=== PATIENT | female | born 1950 | race Caucasian/White ===

== ENCOUNTER 2017-01-04 02:20 | Emergency (ER) | payer OTHER ==
--- NOTE | 2017-01-04 03:29 | ED NURSING NOTES ---
Clinical Report - Nurses [facility] [address] [place] [address] 01/04/2017 2:21 Patient: WANG DUNLAP TRIAGE Triage time 02:23. Acuity: LEVEL 4. Chief Complaint: ANXIETY. 02:34. Alert. SEPSIS SCREEN: Sepsis Screen. Negative (no infection suspected/documented). --02:35 Padilla Contreras R.N. 02:23 01/04/17. BP: 154/92. HR: 98. RR: 17. O2 saturation: 94% on room air. Temp: 98.8 F. Pain level now: 0/10. --02:35 Padilla Contreras R.N. Weight: 79.8 kg stated. Height/Length: 60 inches Per Patient. BMI: 34.4. --02:30 Padilla Contreras R.N. Medications BusPIRone HCl Oral (pt can't remember dose ). --02:27 Padilla Contreras R.N. Dovonex External daily . Hydrochlorothiazide Oral 25 mg, daily. Spiriva HandiHaler Inhalation, 5pm daily . --02:31 Padilla Contreras R.N. Sertraline HCl Oral 25 mg, daily. --02:32 Padilla Contreras R.N. Albuterol Sulfate Inhalation 2 puffs, PRN. --02:36 Padilla Contreras R.N. Allergies No Known Drug Allergy. --02:33 Padilla Contreras R.N. Medication/allergy information source: the patient. --02:35 Padilla Contreras R.N. History Arrived by EMS. Historian: EMS and patient. Unaccompanied. Onset. (2 weeks ago). ( Patient confirmed EMS report, states she has felt panicky everyday and hasn't been able to sleep). Treatment TRANSCRIBING MACHINE MECHANIC: None. EMS treatment TRANSCRIBING MACHINE MECHANIC verbally communicated. ( EMS reports pt complained of Anxiety for the last 2 weeks was seen by a provider started on Buspar took it for 3 days, the anxiety got worse so she quit taking it). PAST MEDICAL HX: Immunizations: up-to-date. The patient has had a hysterectomy. SOCIAL HX: Current some days light tobacco smoker- less than 1/2 a pack per day. Occasional alcohol use. No drug use. No infectious disease exposure. ABUSE ASSESSMENT: No report of abuse. FALL RISK ASSESSMENT: Fall risk assessment completed. No fall risk identified. NUTRITIONAL RISK ASSESSMENT: The nutritional risk assessment revealed no deficiencies. FUNCTIONAL ASSESSMENT: Functional assessment: no impairments noted. LEARNING NEEDS ASSESSMENT: The learning needs assessment revealed no barriers. SKIN INTEGRITY ASSESSMENT: Skin integrity risk assessment completed. No skin integrity risk identified. --02:35 Padilla Contreras R.N. PAST MEDICAL HX: ( patient reports being on 02 at night). --02:37 Padilla Contreras R.N. PROBLEMS: Hypertension. Depression. Anxiety Reaction. Dental Pain. --02:34 Padilla Contreras R.N. COPD - Chronic Obstructive Pulmonary Disease. --02:37 Padilla Contreras R.N. ADDITIONAL SURGERIES: Hysterectomy. --02:34 Padilla Contreras R.N. Interventions ID band on patient. To treatment room. --02:35 Padilla Contreras R.N. PHYSICAL ASSESSMENT 02:23. Ambulatory to room. Patient gowned. GENERAL / NEURO / PSYCH: Alert. Oriented X 4. Speech within normal limits. Affect appears normal. Patient appears calm and cooperative. Good eye contact. Patient appears well-nourished and neat and clean. RESPIRATORY: Respirations not labored. SKIN: Skin intact. Skin is warm and dry. Skin color is within normal limits. --02:36 Padilla Contreras R.N. NURSING PROGRESS NOTES 02:22 Patient to restroom to provide urine sample. --02:22 Padilla Contreras R.N. Patient ID band checked for patient name and birthdate: patient confirmed. Clean catch urine collected with return of yellow-colored clear urine; sample sent to lab for urinalysis. Specimen labeled in the presence of the patient. --02:36 Padilla Contreras R.N. 02:36. Head of bed elevated. Two patient identifiers checked. Call light placed in reach. Side rails up x 1. Bed placed in lowest position. Brakes of bed on. Patient ready for evaluation- chart flagged. --02:36 Padilla Contreras R.N. 03:18 01/04/2017 Ativan (LORazepam) PO 1 mg given. Allergies verified, confirmed 5 rights and sedative warning given to the patient. --03:18 Rico Marte R.N. 03:42. The patient is calm and resting quietly. GENERAL / NEURO / PSYCH: Alert. Oriented X 4. Patient appears calm and cooperative. Affect appears normal. RESPIRATORY: No respiratory distress. SKIN: Skin is warm and dry. Skin color within normal limits. --03:44 Padilla Contreras R.N. 03:50 01/04/2017 Ativan (LORazepam) PO 1 mg given. Allergies verified, confirmed 5 rights and sedative warning given to the patient. --03:53 Padilla Contreras R.N. DISPOSITION / DISCHARGE Condition at departure: stable. No learning barriers present. Discharge instructions provided and reviewed with the patient. Reviewed medication(s) side effects, precautions, dosing and course information. Prescription(s) given to the patient. Patient verbalized understanding. Written instructions provided in Luxembourgish. ( pt in room waiting on ride). The patient was discharged home and accompanied by sandblaster glass. She left the Emergency Department ambulatory and via private vehicle. Fast Food Crew Member driving. FALL RISK ASSESSMENT: Fall risk assessment completed. No fall risk identified. --03:44 Padilla Contreras R.N. 03:36 01/04/17. BP: 142/91. HR: 88. RR: 17. O2 saturation: 94% on room air. Pain level now: 0/10. --03:44 Padilla Contreras R.N. Departure time: 03:53. --03:53 Padilla Contreras R.N. Locked/Released at 01/04/2017 3:54 by Padilla Contreras R.N.
--- NOTE | 2017-01-04 03:29 | ED CLINICAL REPORT ---
Clinical Report - Physicians/Mid Levels [facility] [address] [place] [address] 01/04/2017 2:21 Patient: WANG DUNLAP Time Seen: 02:27. Arrived- By ambulance. Historian- patient and EMS personnel. HISTORY OF PRESENT ILLNESS Chief Complaint: ANXIOUS. This started about 2 weeks ago. (EMS reports pt complained of Anxiety for the last 2 weeks was seen by a provider started on Buspar took it for 3 days, the anxiety got worse so she quit taking it). No recent drug use or alcohol consumption. Has not been sleeping. She has had anxiety. No suicidal thoughts, self-injury inflicted or hallucinations. The symptoms are described as moderate. No injury is present. Similar symptoms previously: Recent medical care: The patient was seen recently by a health care provider. Seen for similar symptoms. REVIEW OF SYSTEMS No headache, dizziness, weakness, chest pain or palpitations. No abdominal pain, vomiting, diarrhea, black stools or numbness. No fever, sore throat or urinary frequency. She has had a cough. No blood tinged sputum, frankly bloody sputum or change in baseline cough. It has been similar to previous symptoms. She has had skin rash located on the back, right forearm and left forearm (chronic psoriasis). Has had similar previous symptoms of skin rash. All systems otherwise negative, except as recorded above. PAST HISTORY ( PCP: [facility] PAST MEDICAL HX: Asthma. COPD (on home O2 "at night"). Hypertension. Anxiety. Psoriasis. Dental problems SURGERY Hysterectomy. Bunionectomy). Medications: Albuterol Sulfate Inhalation 2 puffs, PRN. Sertraline HCl Oral 25 mg, daily. Dovonex External daily . Hydrochlorothiazide Oral 25 mg, daily. Spiriva HandiHaler Inhalation, 5pm daily . BusPIRone HCl Oral (pt can't remember dose ). Allergies: No Known Drug Allergy. SOCIAL HISTORY Smoker- current status unknown. Occasional alcohol use. No drug use. Residence: [place] Is a local resident. Patient is employed. (works at the [employer]). ADDITIONAL NOTES The nursing notes have been reviewed. PHYSICAL EXAM Vital Signs: 01/04/2017 02:23 BP: 154/92. HR: 98. RR: 17. O2 saturation: 94%. Temp: 98.8 F. Pain level now: 0/10. Appearance: Alert. Patient is in moderate distress. Patient is cooperative. Anxious. Eyes: Pupils equal, round and reactive to light. No scleral icterus. Neck: Normal inspection. Neck supple. CVS: Normal heart rate and rhythm. Heart sounds normal. Respiratory: Expiratory mild bilateral wheezes present. Chest nontender. No rales, rhonchi or crepitus. Abdomen: Soft and nontender. Back: No tenderness. Skin: Skin dry. Normal skin color. Normal skin turgor. (psoriaform rash on extremities and trunk). Extremities: Extremities exhibit normal ROM. No calf tenderness. No lower extremity edema. Psych / Neuro: Oriented X 3. Cognition normal. Thought process and content normal. Insight and judgement normal. Cranial nerves normal (as tested). No cerebellar findings. No motor deficit. No sensory deficit. LABS, X-RAYS, AND EKG EKG: EKG time: (done by EMS at 01:36). Regular narrow-complex tachycardia (ventricular rate 105). Sinus tachycardia. Left atrial enlargement. Normal KIN. Non-specific ST segment / T wave abnormalities. The study has been interpreted contemporaneously by me. The EKG appears to be a good tracing. Pulse Oximetry: 01/04/2017 02:23 O2 saturation: 94%. PROGRESS AND PROCEDURES Course of Care: Ativan 1 mg PO given. Patient is stable. Physical exam findings are improved. Symptoms much better. 01/04/2017 03:36 BP: 142/91. HR: 88. RR: 17. O2 saturation: 94%. Pain level now: 0/10. Patient/family counseled. Old ED records reviewed. Disposition: Discharged. Condition: stable and improved. CLINICAL IMPRESSION Stable COPD. Anxiety reaction. Essential hypertension. INSTRUCTIONS Stay with responsible adult family member (or other responsible adult). Drink plenty of fluids. Do not smoke. Seek medical help to quit smoking. Warnings: Further evaluation is necessary. It is very important to follow up with a physician. SEDATIVE MEDICATION: You were given sedative medication during your visit. Do not drive or operate dangerous machinery. CONTROLLED SUBSTANCE WARNINGS. GENERAL WARNINGS: Return or contact your physician immediately if your condition worsens or changes unexpectedly, if not improving as expected, or if other problems arise. Prescription Medications: Ativan 1 mg: Take 1 orally every 8 hours as needed for anxiety. Dispense fifteen (15). No refills. Substitution is permissible. Lunesta 2 mg: take 1 orally at bedtime as needed for sleep. Dispense ten (10). No refills. Substitution is permissible. Follow-up: Follow up with your doctor tomorrow. (Electronically signed by Lamberto Fermin DO 01/04/2017 4:28)
--- NOTE | 2017-01-04 03:29 | ED NURSING NOTES ---
Clinical Report - Nurses [facility] [address] [place] [address] 01/04/2017 2:21 Patient: WANG DUNLAP TRIAGE Triage time 02:23. Acuity: LEVEL 4. Chief Complaint: ANXIETY. 02:34. Alert. SEPSIS SCREEN: Sepsis Screen. Negative (no infection suspected/documented). --02:35 Padilla Contreras R.N. 02:23 01/04/17. BP: 154/92. HR: 98. RR: 17. O2 saturation: 94% on room air. Temp: 98.8 F. Pain level now: 0/10. --02:35 Padilla Contreras R.N. Weight: 79.8 kg stated. Height/Length: 60 inches Per Patient. BMI: 34.4. --02:30 Padilla Contreras R.N. Medications BusPIRone HCl Oral (pt can't remember dose ). --02:27 Padilla Contreras R.N. Dovonex External daily . Hydrochlorothiazide Oral 25 mg, daily. Spiriva HandiHaler Inhalation, 5pm daily . --02:31 Padilla Contreras R.N. Sertraline HCl Oral 25 mg, daily. --02:32 Padilla Contreras R.N. Albuterol Sulfate Inhalation 2 puffs, PRN. --02:36 Padilla Contreras R.N. Allergies No Known Drug Allergy. --02:33 Padilla Contreras R.N. Medication/allergy information source: the patient. --02:35 Padilla Contreras R.N. History Arrived by EMS. Historian: EMS and patient. Unaccompanied. Onset. (2 weeks ago). ( Patient confirmed EMS report, states she has felt panicky everyday and hasn't been able to sleep). Treatment SEARCH AND RESCUE OFFICER: None. EMS treatment SEARCH AND RESCUE OFFICER verbally communicated. ( EMS reports pt complained of Anxiety for the last 2 weeks was seen by a provider started on Buspar took it for 3 days, the anxiety got worse so she quit taking it). PAST MEDICAL HX: Immunizations: up-to-date. The patient has had a hysterectomy. SOCIAL HX: Current some days light tobacco smoker- less than 1/2 a pack per day. Occasional alcohol use. No drug use. No infectious disease exposure. ABUSE ASSESSMENT: No report of abuse. FALL RISK ASSESSMENT: Fall risk assessment completed. No fall risk identified. NUTRITIONAL RISK ASSESSMENT: The nutritional risk assessment revealed no deficiencies. FUNCTIONAL ASSESSMENT: Functional assessment: no impairments noted. LEARNING NEEDS ASSESSMENT: The learning needs assessment revealed no barriers. SKIN INTEGRITY ASSESSMENT: Skin integrity risk assessment completed. No skin integrity risk identified. --02:35 Padilla Contreras R.N. PAST MEDICAL HX: ( patient reports being on 02 at night). --02:37 Padilla Contreras R.N. PROBLEMS: Hypertension. Depression. Anxiety Reaction. Dental Pain. --02:34 Padilla Contreras R.N. COPD - Chronic Obstructive Pulmonary Disease. --02:37 Padilla Contreras R.N. ADDITIONAL SURGERIES: Hysterectomy. --02:34 Padilla Contreras R.N. Interventions ID band on patient. To treatment room. --02:35 Padilla Contreras R.N. PHYSICAL ASSESSMENT 02:23. Ambulatory to room. Patient gowned. GENERAL / NEURO / PSYCH: Alert. Oriented X 4. Speech within normal limits. Affect appears normal. Patient appears calm and cooperative. Good eye contact. Patient appears well-nourished and neat and clean. RESPIRATORY: Respirations not labored. SKIN: Skin intact. Skin is warm and dry. Skin color is within normal limits. --02:36 Padilla Contreras R.N. NURSING PROGRESS NOTES 02:22 Patient to restroom to provide urine sample. --02:22 Padilla Contreras R.N. Patient ID band checked for patient name and birthdate: patient confirmed. Clean catch urine collected with return of yellow-colored clear urine; sample sent to lab for urinalysis. Specimen labeled in the presence of the patient. --02:36 Padilla Contreras R.N. 02:36. Head of bed elevated. Two patient identifiers checked. Call light placed in reach. Side rails up x 1. Bed placed in lowest position. Brakes of bed on. Patient ready for evaluation- chart flagged. --02:36 Padilla Contreras R.N. 03:18 01/04/2017 Ativan (LORazepam) PO 1 mg given. Allergies verified, confirmed 5 rights and sedative warning given to the patient. --03:18 Rico Marte R.N. 03:42. The patient is calm and resting quietly. GENERAL / NEURO / PSYCH: Alert. Oriented X 4. Patient appears calm and cooperative. Affect appears normal. RESPIRATORY: No respiratory distress. SKIN: Skin is warm and dry. Skin color within normal limits. --03:44 Padilla Contreras R.N. 03:50 01/04/2017 Ativan (LORazepam) PO 1 mg given. Allergies verified, confirmed 5 rights and sedative warning given to the patient. --03:53 Padilla Contreras R.N. DISPOSITION / DISCHARGE Condition at departure: stable. No learning barriers present. Discharge instructions provided and reviewed with the patient. Reviewed medication(s) side effects, precautions, dosing and course information. Prescription(s) given to the patient. Patient verbalized understanding. Written instructions provided in Upper Sorbian. ( pt in room waiting on ride). The patient was discharged home and accompanied by haulage engine operator. She left the Emergency Department ambulatory and via private vehicle. Courier Driver driving. FALL RISK ASSESSMENT: Fall risk assessment completed. No fall risk identified. --03:44 Padilla Contreras R.N. 03:36 01/04/17. BP: 142/91. HR: 88. RR: 17. O2 saturation: 94% on room air. Pain level now: 0/10. --03:44 Padilla Contreras R.N. Departure time: 03:53. --03:53 Padilla Contreras R.N. Locked/Released at 01/04/2017 3:54 by Padilla Contreras R.N.
--- NOTE | 2017-01-04 03:29 | ED CLINICAL REPORT ---
Clinical Report - Physicians/Mid Levels [facility] [address] [place] [address] 01/04/2017 2:21 Patient: WANG DUNLAP Time Seen: 02:27. Arrived- By ambulance. Historian- patient and EMS personnel. HISTORY OF PRESENT ILLNESS Chief Complaint: ANXIOUS. This started about 2 weeks ago. (EMS reports pt complained of Anxiety for the last 2 weeks was seen by a provider started on Buspar took it for 3 days, the anxiety got worse so she quit taking it). No recent drug use or alcohol consumption. Has not been sleeping. She has had anxiety. No suicidal thoughts, self-injury inflicted or hallucinations. The symptoms are described as moderate. No injury is present. Similar symptoms previously: Recent medical care: The patient was seen recently by a health care provider. Seen for similar symptoms. REVIEW OF SYSTEMS No headache, dizziness, weakness, chest pain or palpitations. No abdominal pain, vomiting, diarrhea, black stools or numbness. No fever, sore throat or urinary frequency. She has had a cough. No blood tinged sputum, frankly bloody sputum or change in baseline cough. It has been similar to previous symptoms. She has had skin rash located on the back, right forearm and left forearm (chronic psoriasis). Has had similar previous symptoms of skin rash. All systems otherwise negative, except as recorded above. PAST HISTORY ( PCP: [facility] PAST MEDICAL HX: Asthma. COPD (on home O2 "at night"). Hypertension. Anxiety. Psoriasis. Dental problems SURGERY Hysterectomy. Bunionectomy). Medications: Albuterol Sulfate Inhalation 2 puffs, PRN. Sertraline HCl Oral 25 mg, daily. Dovonex External daily . Hydrochlorothiazide Oral 25 mg, daily. Spiriva HandiHaler Inhalation, 5pm daily . BusPIRone HCl Oral (pt can't remember dose ). Allergies: No Known Drug Allergy. SOCIAL HISTORY Smoker- current status unknown. Occasional alcohol use. No drug use. Residence: [place] Is a local resident. Patient is employed. (works at the [employer]). ADDITIONAL NOTES The nursing notes have been reviewed. PHYSICAL EXAM Vital Signs: 01/04/2017 02:23 BP: 154/92. HR: 98. RR: 17. O2 saturation: 94%. Temp: 98.8 F. Pain level now: 0/10. Appearance: Alert. Patient is in moderate distress. Patient is cooperative. Anxious. Eyes: Pupils equal, round and reactive to light. No scleral icterus. Neck: Normal inspection. Neck supple. CVS: Normal heart rate and rhythm. Heart sounds normal. Respiratory: Expiratory mild bilateral wheezes present. Chest nontender. No rales, rhonchi or crepitus. Abdomen: Soft and nontender. Back: No tenderness. Skin: Skin dry. Normal skin color. Normal skin turgor. (psoriaform rash on extremities and trunk). Extremities: Extremities exhibit normal ROM. No calf tenderness. No lower extremity edema. Psych / Neuro: Oriented X 3. Cognition normal. Thought process and content normal. Insight and judgement normal. Cranial nerves normal (as tested). No cerebellar findings. No motor deficit. No sensory deficit. LABS, X-RAYS, AND EKG EKG: EKG time: (done by EMS at 01:36). Regular narrow-complex tachycardia (ventricular rate 105). Sinus tachycardia. Left atrial enlargement. Normal KIN. Non-specific ST segment / T wave abnormalities. The study has been interpreted contemporaneously by me. The EKG appears to be a good tracing. Pulse Oximetry: 01/04/2017 02:23 O2 saturation: 94%. PROGRESS AND PROCEDURES Course of Care: Ativan 1 mg PO given. Patient is stable. Physical exam findings are improved. Symptoms much better. 01/04/2017 03:36 BP: 142/91. HR: 88. RR: 17. O2 saturation: 94%. Pain level now: 0/10. Patient/family counseled. Old ED records reviewed. Disposition: Discharged. Condition: stable and improved. CLINICAL IMPRESSION Stable COPD. Anxiety reaction. Essential hypertension. INSTRUCTIONS Stay with responsible adult family member (or other responsible adult). Drink plenty of fluids. Do not smoke. Seek medical help to quit smoking. Warnings: Further evaluation is necessary. It is very important to follow up with a physician. SEDATIVE MEDICATION: You were given sedative medication during your visit. Do not drive or operate dangerous machinery. CONTROLLED SUBSTANCE WARNINGS. GENERAL WARNINGS: Return or contact your physician immediately if your condition worsens or changes unexpectedly, if not improving as expected, or if other problems arise. Prescription Medications: Ativan 1 mg: Take 1 orally every 8 hours as needed for anxiety. Dispense fifteen (15). No refills. Substitution is permissible. Lunesta 2 mg: take 1 orally at bedtime as needed for sleep. Dispense ten (10). No refills. Substitution is permissible. Follow-up: Follow up with your doctor tomorrow. (Electronically signed by Lamberto Fermin DO 01/04/2017 4:28)
--- NOTE | 2017-01-04 03:29 | ED ORDER SUMMARY ---
..... Patient: WANG DUNLAP OrderSheet [facility] VisitID: [id number] [address] [place] [address] 66y, F Registration Date/Time: 01/04/2017 ORDER SHEET Weight: 79.8 kg (stated) Allergies: No Known Drug Allergy GENERAL ORDERS: MEDICATION ORDERS: Ativan PO 1 mg (HIGH ALERT MEDICATION, NOW) (02:57 01/04/2017 Richard NICHOLS) (3:18 Sarah Chvaes) Ativan PO 1 mg (NOW) (03:53 01/04/2017 Krystal Chvaes verbal order read back to Richard NICHOLS) (3:53 Krystal Chaves) IV FLUIDS: ORDER SHEET NOTES: [Electronically signed by Padilla Contreras R.N. (03:54 01/04/2017)] [Electronically signed by Lamberto Fermin DO (04:28 01/04/2017)] [Electronically locked/signed by Padilla Contreras R.N. (03:54 01/04/2017)]
--- NOTE | 2017-01-04 03:29 | ED ORDER SUMMARY ---
..... Patient: WANG DUNLAP OrderSheet [facility] VisitID: [id number] [address] [place] [address] 66y, F Registration Date/Time: 01/04/2017 ORDER SHEET Weight: 79.8 kg (stated) Allergies: No Known Drug Allergy GENERAL ORDERS: MEDICATION ORDERS: Ativan PO 1 mg (HIGH ALERT MEDICATION, NOW) (02:57 01/04/2017 Richard NICHOLS) (3:18 Sarah Chaves) Ativan PO 1 mg (NOW) (03:53 01/04/2017 Krystal Chaves verbal order read back to Richard NICHOLS) (3:53 Krystal Chaves) IV FLUIDS: ORDER SHEET NOTES: [Electronically signed by Padilla Contreras R.N. (03:54 01/04/2017)] [Electronically signed by Lamberto Fermin DO (04:28 01/04/2017)] [Electronically locked/signed by Padilla Contreras R.N. (03:54 01/04/2017)]
--- NOTE | 2017-01-04 04:28 | ED DISCHARGE INSTRUCTIONS ---
Patient: WANG DUNLAP General Instructions [facility] VisitID: [id number] [address] [place] [address] 66y, F Registration Date/Time: 01/04/2017 Stable COPD. Anxiety reaction. Essential hypertension. INSTRUCTIONS Stay with responsible adult family member (or other responsible adult). Drink plenty of fluids. Do not smoke. Seek medical help to quit smoking. Warnings: Further evaluation is necessary. It is very important to follow up with a physician. SEDATIVE MEDICATION: You were given sedative medication during your visit. Do not drive or operate dangerous machinery. CONTROLLED SUBSTANCE WARNINGS. GENERAL WARNINGS: Return or contact your physician immediately if your condition worsens or changes unexpectedly, if not improving as expected, or if other problems arise. Prescription Medications: Ativan 1 mg: Take 1 orally every 8 hours as needed for anxiety. Dispense fifteen (15). No refills. Substitution is permissible. Lunesta 2 mg: take 1 orally at bedtime as needed for sleep. Dispense ten (10). No refills. Substitution is permissible. Follow-up: Follow up with your doctor tomorrow. ADDITIONAL INFORMATION Stress Reaction Anxiety is the feeling we all get when we think something bad might happen. It is a normal response to stress and usually causes only a mild reaction. When anxiety becomes more severe, emotions may interfere with daily life. In some cases, you may not even be aware of what it is youre anxious about! During an anxiety reaction, you may feel like you are helpless, nervous, depressed or irritable. Your body may show signs of anxiety in many ways. You may experience dry mouth, shakiness, dizziness, weakness, trouble breathing, chest pressure, headache, nausea, diarrhea, tiredness, inability to sleep or sexual problems. Home Care: 1) Try to locate the sources of stress in your life. They may not be obvious! These may include: -- Daily hassles of life which pile up (traffic jams, missed appointments, car troubles, etc.) -- Major life changes, both good (new baby, job promotion) and bad (loss of job, loss of loved one) -- Overload: feeling that you have too many responsibilities and can't take care of all of them at once -- Feeling helpless, feeling that your problems are beyond what youre able to solve 2) Notice how your body reacts to stress. Learn to listen to your body signals. This will help you take action before the stress becomes severe. 3) When you can, do something about the source of your stress. (Avoid hassles, limit the amount of change that happens in your life at one time and take a break when you feel overloaded). 4) Unfortunately, many stressful situations cannot be avoided. It is necessary to learn HOW TO MANAGE STRESS better. There are many proven methods that will reduce your anxiety. These include simple things like exercise, good nutrition and adequate rest. Also, there are certain techniques that are helpful: relaxation and breathing exercises, visualization, biofeedback and meditation. For more information about this, consult your doctor or go to a local bookstore and review the many books and tapes available on this subject. Follow Up If you feel that your anxiety is not responding to self-help measures, contact your doctor or make an appointment with a counselor. Get Prompt Medical Attention if any of the following occur: -- Your symptoms get worse -- Chest pain or trouble breathing -- Severe headache not relieved by rest and mild pain reliever -- Rapid or irregular heartbeat, fainting Panic Attack A panic attack is an extreme fear reaction that comes on for no apparent reason. Symptoms may include pounding or racing heartbeat, shortness of breath, dizziness, weakness and sweating. There is usually a fear that something terrible will happen or that you may . The attack may last a few minutes up to a few hours. Between attacks things will seem quite normal. This condition has a psychological cause and can be treated with the help of a therapist or psychiatrist. Medication is often used and can be very helpful for this problem. Home Care: Try to identify the sources of stress in your life. It may not be obvious! These may include: Daily hassles of life which pile up (traffic jams, missed appointments, car troubles, etc.). Major life changes, both good (new baby, job promotion) and bad (loss of job, loss of loved one). Overload: feeling that you have too many responsibilities and can't take care of everything at once. Helplessness: feeling like your problems are too much for you to handle. Notice how your body reacts to stress. Learn to listen to your body signals so that you can take action before the stress becomes severe. When possible, AVOID or REDUCE THE CAUSE OF STRESS. Avoid hassles, limit the amount of change that is happening in your life at one time or take a break when you feel overloaded. Unfortunately, many stressful situations cannot be avoided. Therefore, it is necessary to LEARN HOW TO MANAGE STRESS better. There are many proven methods that work and will reduce your anxiety. These include simple things like exercise, good nutrition and adequate rest. Also, there are certain techniques that are helpful: relaxation and breathing exercises, visualization, biofeedback, meditation or simply taking some time-out to clear your mind. For more information about this, consult your doctor or go to a local bookstore and review the many books and tapes available on this subject. Follow Up with your doctor or a therapist as advised. Get Prompt Medical Attention if any of the following occur: Worsening of your symptoms to the point of feeling [id number] A change in the type of pain: if it feels different, becomes more severe, lasts longer, or begins to spread into your shoulder, arm, neck, jaw or back Shortness of breath or increased pain with breathing Increasing feeling of weakness or dizziness Fainting Cough with dark colored sputum (phlegm) or blood Fever of 100.4F (38C) or higher, or as directed by your healthcare provider Swelling, pain or redness in one leg High Blood Pressure -- To Be Confirmed [No Tx] Your blood pressure was higher today than normal. Sometimes anxiety or pain can cause a temporary rise in blood pressure that later returns to normal. If your blood pressure is high on one measurement, this does not mean that you have hypertension (a chronic illness). However, you must have your blood pressure measured again within the next few days to find out if its still high. A normal blood pressure is 120/80 or less. The first (top) number is the "systolic" pressure. The second (bottom) number is the "diastolic" pressure. Hypertension exists when either the top number is 140 or higher, OR the bottom number is 90 or higher on repeated measurements. Blood pressure in the range of 120-140 (systolic) or 80-89 (diastolic) is considered "pre-hypertension". This means your are at risk for getting hypertension. You should have regular blood pressure checks to be sure your blood pressure is not rising. Home Care: Measure your blood pressure on 3 different days and write down the results. This can be done at your doctor's office or this facility. Some pharmacies and grocery stores offer automated blood pressure machines for your use. Follow Up: If your blood pressure is "high" (over 120/80) on 2 out of 3 days, you will need to follow up with your doctor for further evaluation and treatment. DO NOT PUT THIS OFF! Untreated high blood pressure increases the risk for heart attack, also known as acute myocardial infarction, or AMI, and stroke. It is a treatable condition. Get Prompt Medical Attention if any of the following occur: Chest pain or shortness of breath Severe headache Throbbing or rushing sound in the ears Nosebleed Sudden severe abdominal pain Extreme drowsiness, confusion or fainting Dizziness or vertigo (dizziness with spinning sensation) Weakness of an arm or leg or one side of the face Difficulty with speech or vision How To Quit Smoking Smoking is one of the hardest habits to break. About half of all those who have ever smoked have been able to quit, and most of those (about 70%) who still smoke want to quit. Here are some of the best ways to stop smoking. Keep Trying: It takes most smokers about 8 tries before they are finally able to fully quit. So, the more often you try and fail, the better your chance of quitting the next time! So, don't give up! Go Cold [place]: Most ex-smokers quit cold turkey. Trying to cut back gradually doesn't seem to work as well, perhaps because it continues the smoking habit. Also, it is possible to fool yourself by inhaling more while smoking fewer cigarettes. This results in the same amount of nicotine in your body! Get Support: Support programs can make an important difference, especially for the heavy smoker. These groups offer lectures, methods to change your behavior and peer support. Call the free national Quitline for more information. 303-HWPC-TPK (845-008-9725). Low-cost or free programs are offered by many hospitals, local chapters of the [employer] (089-520-6028) and the [employer] (499-354-6275). Support at home is important too. Non-smokers can help by offering praise and encouragement. If the smoker fails to quit, encourage them to try again! Srrr-Hty-Vmoqneo Medicines: For those who can't quit on their own, Nicotine Replacement Therapy (NRT) may make quitting much easier. Certain aids such as the nicotine patch, gum and lozenge are available without a prescription. However, it is best to use these under the guidance of your doctor. The skin patch provides a steady supply of nicotine to the body. Nicotine gum and lozenge gives temporary bursts of low levels of nicotine. Both methods take the edge off the craving for cigarettes. WARNING: If you feel symptoms of nicotine overdose, such as nausea, vomiting, dizziness, weakness, or fast heartbeat, stop using these and see your doctor. Prescription Medicines: After evaluating your smoking patterns and prior attempts at quitting, your doctor may offer a prescription medicine such as bupropion (Zyban, Wellbutrin), varenicline (Chantix, Champix), a niocotine inhaler or nasal spray. Each has its unique advantage and side effects which your doctor can review with you. Health Benefits Of Quitting: The benefits of quitting start right away and keep improving the longer you go without smokin minutes: blood pressure and pulse return to normal 8 hours: oxygen levels return to normal 2 days: ability to smell and taste begins to improve as damaged nerves start to regrow 2-3 weeks: circulation and lung function improves 1-9 months: decreased cough, congestion and shortness of breath; less tired 1 year: risk of heart attack decreases by half 5 years: risk of lung cancer decreases by half; risk of stroke becomes the same as a non-smoker For information about how to quit smoking, visit the following links: [employer] , Clearing the Air, Quit Smoking Today - an online booklet. http://www.smokefree.gov/pubs/clearing_the_air.pdf Smokefree.gov http://smokefree.gov/ QuitNet http://www.quitnet.com/ Lorazepam Oral tablet What is this medicine? LORAZEPAM (angelica A ze licha) is a benzodiazepine. It is used to treat anxiety. How should I use this medicine? Take this medicine by mouth with a glass of water. Follow the directions on the prescription label. If it upsets your stomach, take it with food or milk. Take your medicine at regular intervals. Do not take it more often than directed. Do not stop taking except on the advice of your doctor or health acute care physical therapist. Talk to your manager generation regarding the use of this medicine in children. Special care may be needed. What side effects may I notice from receiving this medicine? Side effects that you should report to your doctor or health acute care physical therapist as soon as possible: changes in vision confusion depression mood changes, excitability or aggressive behavior movement difficulty, staggering or jerky movements muscle cramps restlessness weakness or tiredness Side effects that usually do not require medical attention (report to your doctor or health acute care physical therapist if they continue or are bothersome): constipation or diarrhea difficulty sleeping, nightmares dizziness, drowsiness headache nausea, vomiting What may interact with this medicine? barbiturate medicines for inducing sleep or treating seizures, like phenobarbital clozapine medicines for depression, mental problems or psychiatric disturbances medicines for sleep phenytoin probenecid theophylline valproic acid What if I miss a dose? If you miss a dose, take it as soon as you can. If it is almost time for your next dose, take only that dose. Do not take double or extra doses. Where should I keep my medicine? Keep out of the reach of children. This medicine can be abused. Keep your medicine in a safe place to protect it from theft. Do not share this medicine with anyone. Selling or giving away this medicine is dangerous and against the law. Store at room temperature between 20 and 25 degrees C (68 and 77 degrees F). Protect from light. Keep container tightly closed. Throw away any unused medicine after the expiration date. What should I tell my health care provider before I take this medicine? They need to know if you have any of these conditions: alcohol or drug abuse problem bipolar disorder, depression, psychosis or other mental health condition glaucoma kidney or liver disease lung disease or breathing difficulties myasthenia gravis Parkinson's disease seizures or a history of seizures suicidal thoughts an unusual or allergic reaction to lorazepam, other benzodiazepines, foods, dyes, or preservatives or trying to get breast-feeding What should I watch for while using this medicine? Visit your doctor or health acute care physical therapist for regular checks on your progress. Your body may become dependent on this medicine, ask your doctor or health acute care physical therapist if you still need to take it. However, if you have been taking this medicine regularly for some time, do not suddenly stop taking it. You must gradually reduce the dose or you may get severe side effects. Ask your doctor or health acute care physical therapist for advice before increasing or decreasing the dose. Even after you stop taking this medicine it can still affect your body for several days. You may get drowsy or dizzy. Do not drive, use machinery, or do anything that needs mental alertness until you know how this medicine affects you. To reduce the risk of dizzy and fainting spells, do not stand or sit up quickly, especially if you are an older patient. Alcohol may increase dizziness and drowsiness. Avoid alcoholic drinks. Do not treat yourself for coughs, colds or allergies without asking your doctor or health acute care physical therapist for advice. Some ingredients can increase possible side effects. You have been given the following additional information: Anxiety Reaction Panic Attack Hypertension, To Be Confirmed Smoking Cessation Lorazepam Oral tablet Stay with responsible adult family member (or other responsible adult). (Electronically signed by Lamberto Fermin DO 01/04/2017 4:28)
--- NOTE | 2017-01-04 04:28 | ED MED RECONCILIATION SUMMARY ---
Patient: WANG DUNLAP Medication Reconciliation Report [facility] VisitID: [id number] [address] [place] [address] 66y, F Registration Date/Time: 01/04/2017 Weight: 79.8 kg Height/Length: 60 in. BMI: 34.4 ALLERGIES: No Known Drug Allergy The patient's Home Medications are listed below: CONTINUE TAKING THE FOLLOWING MEDICATIONS: Albuterol Sulfate Inhalation 2 puffs, PRN BusPIRone HCl Oral, pt can't remember dose Dovonex External daily Hydrochlorothiazide Oral 25 mg, daily Sertraline HCl Oral 25 mg, daily Spiriva HandiHaler Inhalation, 5pm daily The source(s) of the original Home Medication information: patient The following Medications were given to the patient in the Emergency Department: Ativan [PO] PO 1 mg, administered: 01/04/2017 3:18:00 AM Ativan [PO] PO 1 mg, administered: 01/04/2017 3:50:00 AM The following Medications were prescribed to the patient: Ativan 1 mg: Take 1 orally every 8 hours as needed for anxiety. Dispense fifteen (15). No refills. Substitution is permissible. -- Lamberto Fermin DO Lunesta 2 mg: take 1 orally at bedtime as needed for sleep. Dispense ten (10). No refills. Substitution is permissible. -- Lamberto Fermin DO
--- NOTE | 2017-01-04 04:28 | ED DISCHARGE INSTRUCTIONS ---
Patient: WANG DUNLAP General Instructions [facility] VisitID: [id number] [address] [place] [address] 66y, F Registration Date/Time: 01/04/2017 Stable COPD. Anxiety reaction. Essential hypertension. INSTRUCTIONS Stay with responsible adult family member (or other responsible adult). Drink plenty of fluids. Do not smoke. Seek medical help to quit smoking. Warnings: Further evaluation is necessary. It is very important to follow up with a physician. SEDATIVE MEDICATION: You were given sedative medication during your visit. Do not drive or operate dangerous machinery. CONTROLLED SUBSTANCE WARNINGS. GENERAL WARNINGS: Return or contact your physician immediately if your condition worsens or changes unexpectedly, if not improving as expected, or if other problems arise. Prescription Medications: Ativan 1 mg: Take 1 orally every 8 hours as needed for anxiety. Dispense fifteen (15). No refills. Substitution is permissible. Lunesta 2 mg: take 1 orally at bedtime as needed for sleep. Dispense ten (10). No refills. Substitution is permissible. Follow-up: Follow up with your doctor tomorrow. ADDITIONAL INFORMATION Stress Reaction Anxiety is the feeling we all get when we think something bad might happen. It is a normal response to stress and usually causes only a mild reaction. When anxiety becomes more severe, emotions may interfere with daily life. In some cases, you may not even be aware of what it is youre anxious about! During an anxiety reaction, you may feel like you are helpless, nervous, depressed or irritable. Your body may show signs of anxiety in many ways. You may experience dry mouth, shakiness, dizziness, weakness, trouble breathing, chest pressure, headache, nausea, diarrhea, tiredness, inability to sleep or sexual problems. Home Care: 1) Try to locate the sources of stress in your life. They may not be obvious! These may include: -- Daily hassles of life which pile up (traffic jams, missed appointments, car troubles, etc.) -- Major life changes, both good (new baby, job promotion) and bad (loss of job, loss of loved one) -- Overload: feeling that you have too many responsibilities and can't take care of all of them at once -- Feeling helpless, feeling that your problems are beyond what youre able to solve 2) Notice how your body reacts to stress. Learn to listen to your body signals. This will help you take action before the stress becomes severe. 3) When you can, do something about the source of your stress. (Avoid hassles, limit the amount of change that happens in your life at one time and take a break when you feel overloaded). 4) Unfortunately, many stressful situations cannot be avoided. It is necessary to learn HOW TO MANAGE STRESS better. There are many proven methods that will reduce your anxiety. These include simple things like exercise, good nutrition and adequate rest. Also, there are certain techniques that are helpful: relaxation and breathing exercises, visualization, biofeedback and meditation. For more information about this, consult your doctor or go to a local bookstore and review the many books and tapes available on this subject. Follow Up If you feel that your anxiety is not responding to self-help measures, contact your doctor or make an appointment with a counselor. Get Prompt Medical Attention if any of the following occur: -- Your symptoms get worse -- Chest pain or trouble breathing -- Severe headache not relieved by rest and mild pain reliever -- Rapid or irregular heartbeat, fainting Panic Attack A panic attack is an extreme fear reaction that comes on for no apparent reason. Symptoms may include pounding or racing heartbeat, shortness of breath, dizziness, weakness and sweating. There is usually a fear that something terrible will happen or that you may . The attack may last a few minutes up to a few hours. Between attacks things will seem quite normal. This condition has a psychological cause and can be treated with the help of a therapist or psychiatrist. Medication is often used and can be very helpful for this problem. Home Care: Try to identify the sources of stress in your life. It may not be obvious! These may include: Daily hassles of life which pile up (traffic jams, missed appointments, car troubles, etc.). Major life changes, both good (new baby, job promotion) and bad (loss of job, loss of loved one). Overload: feeling that you have too many responsibilities and can't take care of everything at once. Helplessness: feeling like your problems are too much for you to handle. Notice how your body reacts to stress. Learn to listen to your body signals so that you can take action before the stress becomes severe. When possible, AVOID or REDUCE THE CAUSE OF STRESS. Avoid hassles, limit the amount of change that is happening in your life at one time or take a break when you feel overloaded. Unfortunately, many stressful situations cannot be avoided. Therefore, it is necessary to LEARN HOW TO MANAGE STRESS better. There are many proven methods that work and will reduce your anxiety. These include simple things like exercise, good nutrition and adequate rest. Also, there are certain techniques that are helpful: relaxation and breathing exercises, visualization, biofeedback, meditation or simply taking some time-out to clear your mind. For more information about this, consult your doctor or go to a local bookstore and review the many books and tapes available on this subject. Follow Up with your doctor or a therapist as advised. Get Prompt Medical Attention if any of the following occur: Worsening of your symptoms to the point of feeling [id number] A change in the type of pain: if it feels different, becomes more severe, lasts longer, or begins to spread into your shoulder, arm, neck, jaw or back Shortness of breath or increased pain with breathing Increasing feeling of weakness or dizziness Fainting Cough with dark colored sputum (phlegm) or blood Fever of 100.4F (38C) or higher, or as directed by your healthcare provider Swelling, pain or redness in one leg High Blood Pressure -- To Be Confirmed [No Tx] Your blood pressure was higher today than normal. Sometimes anxiety or pain can cause a temporary rise in blood pressure that later returns to normal. If your blood pressure is high on one measurement, this does not mean that you have hypertension (a chronic illness). However, you must have your blood pressure measured again within the next few days to find out if its still high. A normal blood pressure is 120/80 or less. The first (top) number is the "systolic" pressure. The second (bottom) number is the "diastolic" pressure. Hypertension exists when either the top number is 140 or higher, OR the bottom number is 90 or higher on repeated measurements. Blood pressure in the range of 120-140 (systolic) or 80-89 (diastolic) is considered "pre-hypertension". This means your are at risk for getting hypertension. You should have regular blood pressure checks to be sure your blood pressure is not rising. Home Care: Measure your blood pressure on 3 different days and write down the results. This can be done at your doctor's office or this facility. Some pharmacies and grocery stores offer automated blood pressure machines for your use. Follow Up: If your blood pressure is "high" (over 120/80) on 2 out of 3 days, you will need to follow up with your doctor for further evaluation and treatment. DO NOT PUT THIS OFF! Untreated high blood pressure increases the risk for heart attack, also known as acute myocardial infarction, or AMI, and stroke. It is a treatable condition. Get Prompt Medical Attention if any of the following occur: Chest pain or shortness of breath Severe headache Throbbing or rushing sound in the ears Nosebleed Sudden severe abdominal pain Extreme drowsiness, confusion or fainting Dizziness or vertigo (dizziness with spinning sensation) Weakness of an arm or leg or one side of the face Difficulty with speech or vision How To Quit Smoking Smoking is one of the hardest habits to break. About half of all those who have ever smoked have been able to quit, and most of those (about 70%) who still smoke want to quit. Here are some of the best ways to stop smoking. Keep Trying: It takes most smokers about 8 tries before they are finally able to fully quit. So, the more often you try and fail, the better your chance of quitting the next time! So, don't give up! Go Cold [place]: Most ex-smokers quit cold turkey. Trying to cut back gradually doesn't seem to work as well, perhaps because it continues the smoking habit. Also, it is possible to fool yourself by inhaling more while smoking fewer cigarettes. This results in the same amount of nicotine in your body! Get Support: Support programs can make an important difference, especially for the heavy smoker. These groups offer lectures, methods to change your behavior and peer support. Call the free national Quitline for more information. 539-TJYP-RAN (968-563-0910). Low-cost or free programs are offered by many hospitals, local chapters of the [employer] (736-637-9539) and the [employer] (019-877-2061). Support at home is important too. Non-smokers can help by offering praise and encouragement. If the smoker fails to quit, encourage them to try again! Dzor-Gro-[id number] Medicines: For those who can't quit on their own, Nicotine Replacement Therapy (NRT) may make quitting much easier. Certain aids such as the nicotine patch, gum and lozenge are available without a prescription. However, it is best to use these under the guidance of your doctor. The skin patch provides a steady supply of nicotine to the body. Nicotine gum and lozenge gives temporary bursts of low levels of nicotine. Both methods take the edge off the craving for cigarettes. WARNING: If you feel symptoms of nicotine overdose, such as nausea, vomiting, dizziness, weakness, or fast heartbeat, stop using these and see your doctor. Prescription Medicines: After evaluating your smoking patterns and prior attempts at quitting, your doctor may offer a prescription medicine such as bupropion (Zyban, Wellbutrin), varenicline (Chantix, Champix), a niocotine inhaler or nasal spray. Each has its unique advantage and side effects which your doctor can review with you. Health Benefits Of Quitting: The benefits of quitting start right away and keep improving the longer you go without smokin minutes: blood pressure and pulse return to normal 8 hours: oxygen levels return to normal 2 days: ability to smell and taste begins to improve as damaged nerves start to regrow 2-3 weeks: circulation and lung function improves 1-9 months: decreased cough, congestion and shortness of breath; less tired 1 year: risk of heart attack decreases by half 5 years: risk of lung cancer decreases by half; risk of stroke becomes the same as a non-smoker For information about how to quit smoking, visit the following links: National Cancer [place] , Clearing the Air, Quit Smoking Today - an online booklet. http://www.smokefree.gov/pubs/clearing_the_air.pdf Smokefree.gov http://smokefree.gov/ QuitNet http://www.quitnet.com/ Lorazepam Oral tablet What is this medicine? LORAZEPAM (angelica A ze licha) is a benzodiazepine. It is used to treat anxiety. How should I use this medicine? Take this medicine by mouth with a glass of water. Follow the directions on the prescription label. If it upsets your stomach, take it with food or milk. Take your medicine at regular intervals. Do not take it more often than directed. Do not stop taking except on the advice of your doctor or health rn care manager. Talk to your bark fitter regarding the use of this medicine in children. Special care may be needed. What side effects may I notice from receiving this medicine? Side effects that you should report to your doctor or health rn care manager as soon as possible: changes in vision confusion depression mood changes, excitability or aggressive behavior movement difficulty, staggering or jerky movements muscle cramps restlessness weakness or tiredness Side effects that usually do not require medical attention (report to your doctor or health rn care manager if they continue or are bothersome): constipation or diarrhea difficulty sleeping, nightmares dizziness, drowsiness headache nausea, vomiting What may interact with this medicine? barbiturate medicines for inducing sleep or treating seizures, like phenobarbital clozapine medicines for depression, mental problems or psychiatric disturbances medicines for sleep phenytoin probenecid theophylline valproic acid What if I miss a dose? If you miss a dose, take it as soon as you can. If it is almost time for your next dose, take only that dose. Do not take double or extra doses. Where should I keep my medicine? Keep out of the reach of children. This medicine can be abused. Keep your medicine in a safe place to protect it from theft. Do not share this medicine with anyone. Selling or giving away this medicine is dangerous and against the law. Store at room temperature between 20 and 25 degrees C (68 and 77 degrees F). Protect from light. Keep container tightly closed. Throw away any unused medicine after the expiration date. What should I tell my health care provider before I take this medicine? They need to know if you have any of these conditions: alcohol or drug abuse problem bipolar disorder, depression, psychosis or other mental health condition glaucoma kidney or liver disease lung disease or breathing difficulties myasthenia gravis Parkinson's disease seizures or a history of seizures suicidal thoughts an unusual or allergic reaction to lorazepam, other benzodiazepines, foods, dyes, or preservatives or trying to get breast-feeding What should I watch for while using this medicine? Visit your doctor or health rn care manager for regular checks on your progress. Your body may become dependent on this medicine, ask your doctor or health rn care manager if you still need to take it. However, if you have been taking this medicine regularly for some time, do not suddenly stop taking it. You must gradually reduce the dose or you may get severe side effects. Ask your doctor or health rn care manager for advice before increasing or decreasing the dose. Even after you stop taking this medicine it can still affect your body for several days. You may get drowsy or dizzy. Do not drive, use machinery, or do anything that needs mental alertness until you know how this medicine affects you. To reduce the risk of dizzy and fainting spells, do not stand or sit up quickly, especially if you are an older patient. Alcohol may increase dizziness and drowsiness. Avoid alcoholic drinks. Do not treat yourself for coughs, colds or allergies without asking your doctor or health rn care manager for advice. Some ingredients can increase possible side effects. You have been given the following additional information: Anxiety Reaction Panic Attack Hypertension, To Be Confirmed Smoking Cessation Lorazepam Oral tablet Stay with responsible adult family member (or other responsible adult). (Electronically signed by Lamberto Fermin DO 01/04/2017 4:28)
--- NOTE | 2017-01-04 04:28 | ED MED RECONCILIATION SUMMARY ---
Patient: WANG DUNLAP Medication Reconciliation Report [facility] VisitID: [id number] [address] [place] [address] 66y, F Registration Date/Time: 01/04/2017 Weight: 79.8 kg Height/Length: 60 in. BMI: 34.4 ALLERGIES: No Known Drug Allergy The patient's Home Medications are listed below: CONTINUE TAKING THE FOLLOWING MEDICATIONS: Albuterol Sulfate Inhalation 2 puffs, PRN BusPIRone HCl Oral, pt can't remember dose Dovonex External daily Hydrochlorothiazide Oral 25 mg, daily Sertraline HCl Oral 25 mg, daily Spiriva HandiHaler Inhalation, 5pm daily The source(s) of the original Home Medication information: patient The following Medications were given to the patient in the Emergency Department: Ativan [PO] PO 1 mg, administered: 01/04/2017 3:18:00 AM Ativan [PO] PO 1 mg, administered: 01/04/2017 3:50:00 AM The following Medications were prescribed to the patient: Ativan 1 mg: Take 1 orally every 8 hours as needed for anxiety. Dispense fifteen (15). No refills. Substitution is permissible. -- Lamberto Fermin DO Lunesta 2 mg: take 1 orally at bedtime as needed for sleep. Dispense ten (10). No refills. Substitution is permissible. -- Lamberto Fermin DO
--- NOTE | 2017-01-04 04:28 | ED MAR SUMMARY ---
..... Medication Administration Record [facility] [address] [place] [address] Patient: WANG DUNLAP Visit ID: [id number] 66y, F Weight: 79.8 kg Height/Length: 60 in BMI: 34.4 ALLERGIES: No Known Drug Allergy Given 03:18 01/04/2017 Rico Marte, RBrettNBrett Medication Administered: ATIVAN [PO] (LORAZEPAM), Dose: 1 mg PO. Medication Ordered: Ativan PO 1 mg (HIGH ALERT MEDICATION, NOW). Given 03:50 01/04/2017 Padilla Contreras, RBrettNBrett Medication Administered: ATIVAN [PO] (LORAZEPAM), Dose: 1 mg PO. Medication Ordered: Ativan PO 1 mg (NOW).
--- NOTE | 2017-01-04 04:28 | ED MAR SUMMARY ---
..... Medication Administration Record [facility] [address] [place] [address] Patient: WANG DUNLAP Visit ID: [id number] 66y, F Weight: 79.8 kg Height/Length: 60 in BMI: 34.4 ALLERGIES: No Known Drug Allergy Given 03:18 01/04/2017 Rico Marte, RBrettNBrett Medication Administered: ATIVAN [PO] (LORAZEPAM), Dose: 1 mg PO. Medication Ordered: Ativan PO 1 mg (HIGH ALERT MEDICATION, NOW). Given 03:50 01/04/2017 Padilla Contreras, RBrettNBrett Medication Administered: ATIVAN [PO] (LORAZEPAM), Dose: 1 mg PO. Medication Ordered: Ativan PO 1 mg (NOW).
== END 2017-01-04 03:53 | disposition home or self-care (01) ==
LOC: ED SRH 02:20
DX: F41.1 Generalized anxiety disorder (principal); J44.9 Chronic obstructive pulmonary disease, unspecified; I10 Essential (primary) hypertension; J45.909 Unspecified asthma, uncomplicated; F17.210 Nicotine dependence, cigarettes, uncomplicated; Z79.899 Other long term (current) drug therapy